=== PATIENT | female | born 1980 | race Caucasian/White ===

== ENCOUNTER 2019-10-27 21:23 | Emergency (ER) | payer MEDICAID ==
[~2019-10-27] VITALS: Ht 149.9 cm; Wt 50.3 kg
[2019-10-27 21:30] VITALS: Ht 149.9 cm; Wt 50.3 kg
[2019-10-27 22:27] LABS: PLATELET COUNT 163 x10^3mcL (130-400)
[2019-10-27 22:45] LABS: RED CELL DISTRIBUTION WIDTH 17.3 % (11.5-14.5)
[2019-10-27 22:50] LABS: CALCIUM 9.2 mg/dL (8.5-10.1); CARBON DIOXIDE 29.8 mmol/L (21-32); CHLORIDE SERUM 106 mmol/L (98-107); CREATININE SERUM 0.6 mg/dL (0.6-1.0); GFR1 > 60 mL/min; GLUCOSE SERUM 91 mg/dL (74-106); POTASSIUM SERUM 3.8 mmol/L (3.5-5.1); SODIUM SERUM 142 mmol/L (136-145)
[2019-10-27 23:11] LABS: BAND NEUTROPHIL 0 % (0-10); BASOPHIL 0 % (0-2); MONOCYTE 6 % (0-7); SEGMENTED NEUTROPHILS 64 % (37-75)
[2019-10-27 23:14] LABS: ovalocyte/elliptocyte 1+; rbc morphology (normal/abnorm) ABNORMAL (NORMAL)
[2019-10-27 23:15] LABS: schistocyte (helmet cell) 1+; tear drop cell (dacryocyte) 1+
[2019-10-28 00:06] VITALS: BP 96/56
== END 2019-10-28 00:36 | disposition home or self-care (01) ==
LOC: ED 21:23
PROVIDERS: Emergency Medicine
DX: N93.8 Other specified abnormal uterine and vaginal bleeding (principal); N92.0 Excessive and frequent menstruation with regular cycle; D64.9 Anemia, unspecified; Z98.890 Other specified postprocedural states
CPT/HCPCS: J7030